=== PATIENT | female | born 1995 | race Caucasian/White ===

== ENCOUNTER → 2022-08-11 10:47 | Outpatient (BNVA) | payer MEDICAID, SELFPAY | PROVIDERS: PCP Registered Nurse; Referring Provider Registered Nurse; Visit Provider Internal Medicine | DX: E05.90 Thyrotoxicosis, unspecified without thyrotoxic crisis or storm (principal); R45.86 Emotional lability | CPT/HCPCS: 36415; 83516; 84432; 84439; 84443; 84480; 86376; 86800 ==

== ENCOUNTER 2022-11-17 10:51 | Outpatient (CLI) | payer MEDICAID, SELFPAY ==
[2022-11-17 11:47] LABS: Free T4 Free Thyroxine 1.15 ng/dL (0.82-1.77); Thyroid Stimulating Hormone 1.38 uIU/mL (0.27-4.20)
[2022-11-19 09:59] LABS: T3 Total 131 ng/dL (76-181)
== END 2022-11-17 10:52 | disposition home or self-care (01) ==
LOC: LAB 10:54
PROVIDERS: PCP Registered Nurse; Visit Provider Internal Medicine
DX: E05.90 Thyrotoxicosis, unspecified without thyrotoxic crisis or storm (principal)
CPT/HCPCS: 84439; 84443; 84480